=== PATIENT | female | born 1985 | race Two or more races ===

== ENCOUNTER 2018-05-17 13:52 | Outpatient (CLI) | payer OTHER ==
[~2018-05-17 13:52] MED LIST: PRENATAL CAPLE1 EACH PO
== END 2018-05-17 13:57 | disposition home or self-care (01) ==
LOC: SONOGRAMA 13:52
DX: N60.11 Diffuse cystic mastopathy of right breast (principal)

== ENCOUNTER → 2019-02-08 | Outpatient (CLI) | payer OTHER | END | disposition home or self-care (01) | LOC: SONOGRAMA 08:06 | DX: R10.84 Generalized abdominal pain (principal) ==

== ENCOUNTER 2019-03-14 16:10 | Emergency (ER) | payer OTHER ==
[~2019-03-14] VITALS: Ht 160 cm; Wt 64.0 kg
[2019-03-14] MEDS ORDERED: [UNRECOGNIZED DRUG - OTHER] (16:29)
[2019-03-14] MEDS ORDERED: DICY20TA PO (22:03)
[2019-03-14] MEDS ORDERED: LOPERAMIDE2 MG PO (22:03)
[2019-03-14] MEDS ORDERED: PEPCID AC20 MG PO (22:03)
[2019-03-14] MEDS ORDERED: INTESTINEX680 M1 PO (22:03)
== END 2019-03-14 22:13 | disposition home or self-care (01) ==
LOC: ER 16:10
DX: K52.9 Noninfective gastroenteritis and colitis, unspecified (principal); E86.0 Dehydration

== ENCOUNTER 2019-03-16 18:37 | Emergency (ER) | payer OTHER ==
[~2019-03-16] VITALS: Ht 160 cm; Wt 64.0 kg
[~2019-03-16 18:37] MED LIST changes: +DICY20TA PO; +INTESTINEX680 M1 PO; +LOPERAMIDE2 MG PO; +PEPCID AC20 MG PO; +[UNRECOGNIZED DRUG - OTHER]
== END 2019-03-16 23:31 | disposition home or self-care (01) ==
LOC: ER 18:37
DX: O26.892 Other specified pregnancy related conditions, second trimester (principal); K52.9 Noninfective gastroenteritis and colitis, unspecified; Z34.82 Encounter for supervision of other normal pregnancy, second trimester

== ENCOUNTER 2019-07-12 09:32 | Inpatient (IN) | payer OTHER ==
[~2019-07-12] VITALS: Ht 160 cm; Wt 74.4 kg
== END 2019-08-03 14:09 | disposition home or self-care (01) | DRG 807 ==
LOC: SURG-SUITE 08-01 20:42 → LDR 08-01 20:42 → SURG-SUITE 08-01 23:24 → OB/GYN 08-06 12:30
PROVIDERS: ADMIT Obstetrics & Gynecology
PROC: 10E0XZZ Delivery of Products of Conception, External Approach (ICD-10-PCS; principal; 2019-08-01)
PROC: 0HQ9XZZ Repair Perineum Skin, External Approach (ICD-10-PCS; 2019-08-01)
PROC: 4A1HXCZ Monitoring of Products of Conception, Cardiac Rate, External Approach (ICD-10-PCS; 2019-08-01)
DX: O70.0 First degree perineal laceration during delivery (principal); Z37.0 Single live birth; Z3A.39 39 weeks gestation of pregnancy; Z22.330 Carrier of Group B streptococcus

== ENCOUNTER 2021-01-19 14:17 | Outpatient (CLI) | payer OTHER | END 2021-01-19 14:19 | disposition home or self-care (01) | LOC: SONOGRAMA 14:17 | PROVIDERS: ATTEND Obstetrics & Gynecology | DX: R10.11 Right upper quadrant pain (principal); R10.31 Right lower quadrant pain ==

== ENCOUNTER 2021-02-03 08:10 | Outpatient (CLI) | payer OTHER | END 2021-02-03 08:36 | disposition home or self-care (01) | LOC: MRI 08:10 | PROVIDERS: ATTEND Internal Medicine Gastroenterology | DX: R10.31 Right lower quadrant pain (principal); D48.1 Neoplasm of uncertain behavior of connective and other soft tissue | CPT/HCPCS: 72197; 74183 ==